=== PATIENT | male | born 1985 | race Caucasian/White ===

== ENCOUNTER 2019-02-26 12:42 | Emergency (ER) | payer BC ==
[~2019-02-26] VITALS: Ht 190.5 cm; Wt 77.3 kg
[2019-02-26] MEDS ORDERED: normal saline 1000ML IV soln IVB ONE (12:55)
[2019-02-26] MEDS ORDERED: ondansetron/PF 4mg/2ml inj IV ONE (12:55)
--- NOTE | 2019-02-26 13:02 | NUR ---
OUT IN SUN X 8 HOURS YESTERDAY. TODAY, FEELING TINGLING, ABDOMEN TIGHTNESS, DIZZY, LIGHTHEADED.
[2019-02-26 13:09] LABS: BASOPHILS % (AUTO) 0.3 % (0-1); EOSINOPHILS % (AUTO) 0.2 % (0-6); HEMATOCRIT 46.4 % (42.0-52.0); LYMPHOCYTES # (AUTO) 1.1 X10'3 (1.1-4.8); LYMPHOCYTES % (AUTO) 18.2 % (21-51); MEAN CORPUSCULAR HEMOGLOBIN 30.8 PG (27.0-31.0); MEAN CORPUSCULAR HGB CONC 34.5 g/dL (33.0-36.5); MEAN CORPUSCULAR VOLUME 89.4 FL (78-98); MEAN PLATELET VOLUME 8.6 FL (7.4-10.4); MONOCYTES # (AUTO) 0.5 X10'3 (0-0.9); MONOCYTES % (AUTO) 9.1 % (2-12); NEUTROPHILS # (AUTO) 4.3 X10'3 (1.8-7.7); NEUTROPHILS % (AUTO) 72.2 % (42-75); PLATELET COUNT 231 X10'3 (140-440); RED BLOOD COUNT 5.19 X10'6 (4.70-6.10); RED CELL DISTRIBUTION WIDTH 12.2 % (11.5-14.5)
[2019-02-26 13:20] LABS: ALANINE AMINOTRANSFERASE 23 U/L (12-78); ALBUMIN 4.6 G/DL (3.4-5.0); ALBUMIN/GLOBULIN RATIO 1.5 (1.1-1.5); ALKALINE PHOSPHATASE 72 IU/L (46-116); ANION GAP 13 (8-16); ASPARTATE AMINO TRANSFERASE 16 U/L (10-37); BILIRUBIN,TOTAL 0.9 MG/DL (0.1-1.0); BLOOD UREA NITROGEN 17 MG/DL (7-18); BUN/CREATININE RATIO 22.1 (5.4-32.0); CHLORIDE 102 MMOL/L (99-107); CREATININE 0.77 MG/DL (0.60-1.10); GLUCOSE 130 MG/DL (70-104); POTASSIUM 3.7 MMOL/L (3.5-5.1); SODIUM 141 MMOL/L (135-145); TOTAL CARBON DIOXIDE 26.1 MMOL/L (24-32); TOTAL PROTEIN 7.6 G/DL (6.4-8.2); eGFR > 90 ML/MIN
[2019-02-26 14:00] VITALS: BP 116/76
--- NOTE | 2019-02-26 14:00 | NUR ---
PO CHALLENGE STARTED PT TOLERATED ORAL FLUIDS ,DENIES ANY NAUSEA OR VOMITING.INFORMED DR DOMINGUEZ .
--- NOTE | 2019-02-26 14:02 | NUR ---
PT SIGNIFICANT OTHER AT BEDSIDE ,PT INFORMED THAT TO DRINK WATER OR FLUID TO SEE HOW YOU TOLERATING.VITALS STABLE AND UPDATED ,DENIES ANY CONCERN OR QUESTION.
== END 2019-02-26 14:27 | disposition home or self-care (01) ==
LOC: ER 12:42 → EDBD 12:42 → ER 14:27
DX: R11.0 Nausea (principal); R20.2 Paresthesia of skin
CPT/HCPCS: 36415; 80053; 85025; 96374; 99283; J2405; J7030